=== PATIENT | male | born 1985 | race Caucasian/White ===

== ENCOUNTER 2020-04-16 22:08 | Emergency (ER) | payer OTHER ==
[~2020-04-16] VITALS: Ht 172.7 cm; Wt 68.0 kg
[2020-04-16 22:17] VITALS: BP 130/80
== END 2020-04-16 22:57 ==
LOC: ER 22:08
DX: Z02.89 Encounter for other administrative examinations (principal); M54.2 Cervicalgia

== ENCOUNTER 2024-03-13 13:54 | Emergency (ER) | payer MEDICAID, OTHER ==
[~2024-03-13] VITALS: Ht 170.2 cm; Wt 77.1 kg
[2024-03-13 15:35] VITALS: BP 134/77; TEMP 97.5; O2SAT 94
[2024-03-14 08:09] LABS: RAPID PLASMA REAGIN QUAL. Non Reactive (Non Reactive)
[2024-03-14 16:04] LABS: HIV-1 p24 ANTIGEN NON REACTIVE (NONREACTIVE); HIV-1/2 ANTIBODY NON REACTIVE (NONREACTIVE)
[2024-03-15 03:10] LABS: CHLAMYDIA TRACHOMATIS NAA Negative (Negative); NEISSERIA GONORRHOEAE NAA Negative (Negative)
== END 2024-03-13 16:33 | disposition home or self-care (01) ==
LOC: ER 14:04
DX: Z20.2 Contact with and (suspected) exposure to infections with a predominantly sexual mode of transmission (principal); F17.200 Nicotine dependence, unspecified, uncomplicated
CPT/HCPCS: 36415; 86592; 86593; 87491; 87591; 87806